=== PATIENT | female | born 1955 | race Caucasian/White ===

== ENCOUNTER 2021-09-26 05:23 | Inpatient (IN) ==
--- NOTE | 2021-08-26 10:50 | PAT Medication Instructions ---
Medication Instructions Date of Service August 26, 2021 Home Medications docusate sodium 50 mg capsule (Stool Softener) 50 mg PO BID folic acid 1 mg tablet 1 mg PO BID glipizide 5 mg tablet 5 mg PO BID golimumab 50 mg/0.5 mL subcutaneous pen injector (Simponi) 50 mg SUBCUT UD hydrocodone 5 mg-acetaminophen 325 mg tablet 1 tab PO TID PRN leflunomide 20 mg tablet 20 mg PO QAM prednisone 5 mg tablet 5 mg PO QAM semaglutide 2 mg/dose (8 mg/3 mL) subcutaneous pen injector (Ozempic) 2 mg SUBCUT UD sertraline 50 mg tablet (Zoloft) 50 mg PO QAM Continue as directed semaglutide 2 mg/dose (8 mg/3 mL) subcutaneous pen injector (Ozempic) 2 mg SUBCUT UD ASK your prescriber and surgeon golimumab 50 mg/0.5 mL subcutaneous pen injector (Simponi) 50 mg SUBCUT UD leflunomide 20 mg tablet 20 mg PO QAM DO NOT take the morning of surgery docusate sodium 50 mg capsule (Stool Softener) 50 mg PO BID folic acid 1 mg tablet 1 mg PO BID glipizide 5 mg tablet 5 mg PO BID Take morning of surgery With a small sip of water, OTHERWISE NOTHING TO EAT OR DRINK AFTER MIDNIGHT: hydrocodone 5 mg-acetaminophen 325 mg tablet 1 tab PO TID PRN (if needed) prednisone 5 mg tablet 5 mg PO QAM sertraline 50 mg tablet (Zoloft) 50 mg PO QAM Take evening before surgery docusate sodium 50 mg capsule (Stool Softener) 50 mg PO BID folic acid 1 mg tablet 1 mg PO BID glipizide 5 mg tablet 5 mg PO BID hydrocodone 5 mg-acetaminophen 325 mg tablet 1 tab PO TID PRN (if needed) Other Notes If you have any questions please call us at [phone] or [phone] or [phone] or [phone]
--- NOTE | 2021-08-27 09:05 | Anesthesiology Consultation ---
Date of Service August 27, 2021 Assessment & Plan (1) Encounter for pre-operative examination: - check BSG am DOS. - dyspnea on exertion: Case discussed with Dr. Angeles who advised patient is acceptable risk to proceed with surgery and does not need additional evaluation or testing prior to surgery. - COVID screening: Per assessment on 08/27/2021: Travel screen returned 08/22 from [place] , no known COVID-19 positive contacts or current COVID-19 related symptoms in past 2 weeks. Pt vaccinated. Surgeon arranging preop COVID testing, scheduled 09/24/2021. Awaiting results. Chart Review Chart Review: Acceptable Risk for Surgery and Patient seen in Pre Admission Testing Teaching & Discussion Pre-Anesthesia Teaching/Discussion Notes: Instructed NPO after midnight before surgery, except medications with 15 cc of water. Medication instructions provided according to the PAT guidelines. History Surgery Operation Date: 09/26/21 12:15 Proposed Procedures p Right Total Hip Arthroplasty - Hossein Bhat DO Height/Weight Height: 5 ft 3 in Weight: 91.3 kg Allergies Allergy/AdvReac Type Severity Reaction Status Date / Time levofloxacin [From Levaquin] Allergy Severe kidney Verified 08/26/21 09:19 failure adalimumab Allergy Mild Joint Pain Verified 08/26/21 09:19 doxycycline Allergy Mild Rash Verified 08/26/21 09:19 etanercept Allergy Mild Joint Pain Verified 08/26/21 09:19 tromethamine Allergy Mild Unknown Verified 08/26/21 09:19 Medications Home Medications Medication Instructions Recorded Confirmed Last Taken docusate sodium 50 mg capsule 50 mg PO BID 08/26/21 08/26/21 Unknown (Stool Softener) folic acid 1 mg tablet 1 mg PO BID 08/26/21 08/26/21 Unknown glipizide 5 mg tablet 5 mg PO BID 08/26/21 08/26/21 Unknown golimumab 50 mg/0.5 mL 50 mg SUBCUT UD 08/26/21 08/26/21 Unknown subcutaneous pen injector (Simponi) hydrocodone 5 mg-acetaminophen 325 1 tab PO TID PRN 08/26/21 08/26/21 Unknown mg tablet leflunomide 20 mg tablet 20 mg PO QAM 08/26/21 08/26/21 Unknown prednisone 5 mg tablet 5 mg PO QAM 08/26/21 08/26/21 Unknown semaglutide 2 mg/dose (8 mg/3 mL) 2 mg SUBCUT UD 08/26/21 08/26/21 Unknown subcutaneous pen injector (Ozempic) sertraline 50 mg tablet (Zoloft) 50 mg PO QAM 08/26/21 08/26/21 Unknown Past Medical History Medical History (Updated 08/27/21 @ 09:34 by Viola Tejeda PA-C) Depression Diabetes NIDDM GERD (gastroesophageal reflux disease) occasional, resolved with prn TUMS History of COVID-19 06/2021 asymptomatic 02/2020- cough, congestion, fever, body aches- no hospitalization History of uterine cancer surgical intervention- 27 yrs ago no chemo or radiation Hx of diverticulitis of colon Hx of renal failure 04/2020- states due to severe allergic reaction to levaquin was hospitalized at [facility]. was on the levaquin for diverticulitis ; no dialysis needed at time. currently no kidney issues Rheumatoid arthritis Patient denies h/o stroke, seizures, heart attack, heart failure, HTN, blood clots or blood transfusions. Exercise / Class Metabolic Activity III < 4 Walking/Shop/Light housework (ambulates with rolling walker, occ SOB with usual activities ongoing x several months-unchanged; denies chest discomfort) Past Surgical History Surgical History History of total bilateral knee replacement Hx laparoscopic cholecystectomy Hx of section Hx of dilation and curettage Hx of hysterectomy S/P colonoscopy Past Anesthesia History No Hx of Anesthesia Complications and No Family Hx of Anesthesia Complications History of PONV No Hx of PONV and No Hx of Motion Sickness Social History Smoking Status: Never smoker Do You Dip or Chew Tobacco: No Hx Alcohol Use: No Hx Substance Use: No substance use type: does not use Review of Systems Snoring, occ snores self awake; denies witnessed apneas or sleep studies. Patient denies chest pain, fever, chills, cough, wheezing, or palpitations. Physical Exam Vital Signs Vitals BP 125/68 P 63 TEMP 97.9 SP02 97% on RA RESP 17 Physical Full cervical extension range of motion without pain TMD 3.5 finger breaths Mallampati Score 3 Dentition: edentulous, implants lower teeth and full upper dentures Lungs: normal respiratory effort. Clear throughout to auscultation, no adventitious breath sounds Cardiac: regular rate and rhythm, no murmurs noted Carotid arteries: negative bruit bilat Lab Results Anesthesia Preop Results Results Anesthesia Widget: WBC 5.05 K/uL (4.8-10.8) 08/27/21 Hgb 13.5 g/dL (12.0-16.0) 08/27/21 Hct 41.7 % (37-47) 08/27/21 Plt 176 K/uL (130-400) 08/27/21 Na 142 mmol/L (136-145) 08/27/21 K 4.5 mmol/L (3.5-5.1) 08/27/21 Cl 107 mmol/L (98-107) 08/27/21 CO2 28 mmol/L (21-32) 08/27/21 BUN 22 mg/dl (6-23) 08/27/21 Creat 0.70 mg/dl (0.6-1.2) 08/27/21 Glucose Level 130 mg/dl (70-99(Fasting)) H 08/27/21 PT 10.3 Seconds (9.0-12.0) 08/27/21 PTT 26.1 Seconds (21.0-31.0) 08/27/21 INR 1.0 (0.9-1.1) 08/27/21 HA1c 6.7 % (4.5-5.6) H 08/27/21 Urine Color Dark Yellow 08/27/21 Urine Appearance Clear (Clear) 08/27/21 Urine pH 5.0 (4.5-7.5) 08/27/21 Urine Specific [place] 1.030 (1.000-1.030) 08/27/21 Urine Protein Negative (Negative) 08/27/21 Urine Glucose (UA) Negative (Negative) 08/27/21 Urine Ketones Negative (Negative) 08/27/21 Urine Blood Negative (Negative) 08/27/21 Urine Nitrite Negative (Negative) 08/27/21 Urine Bilirubin Negative (Negative) 08/27/21 Urine Urobilinogen Negative (Negative) 08/27/21 Urine Leukocyte Esterase Negative (Negative) 08/27/21 Blood Type A Positive 08/27/21 Antibody Screen NEGATIVE 08/27/21 Testing Electrocardiogram Date: 08/27/21 Sinus bradycardia, rate 59 bpm Chest X-Ray Date: 08/27/21 No lines and tubes are seen. The cardiomediastinal silhouette is normal. The lungs are clear. No evidence of pleural effusion or pneumothorax. Degenerative changes are seen in the spine. IMPRESSION: No acute chest disease. Cervical Spine Date: 08/27/21 x-ray FINDINGS: Lateral views of the cervical spine in the neutral, flexion, and extension positions are obtained. No prior studies are available for comparison at the time of dictation. The skeletal structures are osteopenic. There is no radiographic evidence of fracture or subluxation on these lateral projections. Vertebral body height and alignment are maintained. Small anterior osteophytes are seen throughout. There is no inducible bony subluxation on the flexion/extension views. The spinolaminar line is maintained. Productive degenerative change is noted at the atlantodental articulation. There is mild disc space narrowing and a posterior disc osteophyte complex at C6-C7. The remaining disc spaces are preserved. The spinous processes appear intact. The prevertebral soft tissues are within normal limits. IMPRESSION: 1. No acute bony abnormality is identified on these lateral views. 2. Osteopenia and mild spondylotic change as above. 3. There is no inducible bony subluxation on the flexion/extension views.
--- NOTE | 2021-09-25 17:59 | History & Physical Report ---
Date of Service September 25, 2021 Assessment & Plan (1) Osteoarthritis of right hip: Plan: Schedule patient for right total hip arthroplasty for 09/26/2021. Plan for aspirin 81 mg twice daily x4 weeks for postoperative blood clot prophylaxis.All potential risks, benefits, complications, alternatives, and rehab have been discussed with the patient and she wishes to proceed. History of Present Illness Chief Complaint: Right hip pain Primary Care Provider: Antonieta Mariee DO This is a patient has been treated conservatively for chronic right hip pain. She was treated for osteoarthritis of the right hip however all conservative management failed. X-rays noted severe osteoarthritis of the right hip. She is now being set up for surgical treatment. Allergies Allergy/AdvReac Type Severity Reaction Status Date / Time levofloxacin [From Levaquin] Allergy Severe kidney Verified 08/26/21 09:19 failure adalimumab Allergy Mild Joint Pain Verified 08/26/21 09:19 doxycycline Allergy Mild Rash Verified 08/26/21 09:19 etanercept Allergy Mild Joint Pain Verified 08/26/21 09:19 tromethamine Allergy Mild Unknown Verified 08/26/21 09:19 Home Medications Medication Instructions Recorded Confirmed Type docusate sodium 50 mg capsule 50 mg PO BID 08/26/21 08/26/21 History (Stool Softener) folic acid 1 mg tablet 1 mg PO BID 08/26/21 08/26/21 History glipizide 5 mg tablet 5 mg PO BID 08/26/21 08/26/21 History golimumab 50 mg/0.5 mL 50 mg subcut UD 08/26/21 08/26/21 History subcutaneous pen injector (Simponi) hydrocodone 5 mg-acetaminophen 325 1 tab PO TID PRN Pain 08/26/21 08/26/21 History mg tablet leflunomide 20 mg tablet 20 mg PO QAM 08/26/21 08/26/21 History prednisone 5 mg tablet 5 mg PO QAM 08/26/21 08/26/21 History semaglutide 2 mg/dose (8 mg/3 mL) 2 mg subcut UD 08/26/21 08/26/21 History subcutaneous pen injector (Ozempic) sertraline 50 mg tablet (Zoloft) 50 mg PO QAM 08/26/21 08/26/21 History Past Med/Surg History Medical History Depression Diabetes NIDDM GERD (gastroesophageal reflux disease) occasional, resolved with prn TUMS History of COVID-19 06/2021 asymptomatic 02/2020- cough, congestion, fever, body aches- no hospitalization History of uterine cancer surgical intervention- 27 yrs ago no chemo or radiation Hx of diverticulitis of colon Hx of renal failure 04/2020- states due to severe allergic reaction to levaquin was hospitalized at [facility]. was on the levaquin for diverticulitis ; no dialysis needed at time. currently no kidney issues Rheumatoid arthritis Surgical History History of total bilateral knee replacement Hx laparoscopic cholecystectomy Hx of section Hx of dilation and curettage Hx of hysterectomy S/P colonoscopy Social History Smoking Status: Never smoker Second Hand Exposure: No; Hx Alcohol Use: No Hx Substance Use: No Preferred Language: Azerbaijani Communication Ability: Effective Inpatient Services Rn Required: No Beliefs That Will Affect Care: None Current Living Situation: Spouse Feels Safe at Home: Yes Assistive Devices: Denture - Upper, Denture - Lower and Walker Physical Exam Constitutional: well developed and well nourished; no acute distress ENMT: external ear and nose normal, oropharynx normal Neck: trachea midline Respiratory: normal respiratory effort, lungs clear to auscultation Cardiovascular: Rate/Rhythm: regular rate and regular rhythm Gastrointestinal (Abdomen): normal bowel sounds, soft, nontender, no hepatosplenomegaly Musculoskeletal: Hip: + limited ROM of hip (Right internal and external rotation), + joint line tenderness (Right groin) and + MAYURI test positive (Right); no skin erythema and no ecchymosis Skin: no rashes, warm and dry Trauma: no evidence of skin trauma Neurologic: normal touch/pain/proprioception Psychiatric: A+Ox3, euthymic affect Speech: normal rate/rhythm/volume of speech Lymphatic: no cervical or axillary lymphadenopathy
[2021-09-26] MEDS ORDERED: LR 500ML BOLUS, THEN 15ML/HR IV SCH (06:00)
[2021-09-26] MEDS ORDERED: ROPIVACAINE 0.5% HCL/PF 150 MG, BUPIVACAINE 0.75% MPF 20 ML, EPINEPHrine 30MG/30ML (OR ... INFIL SCH (06:00)
[2021-09-26] MEDS ORDERED: FAMOTIDINE 20 MG TAB PO SCH (06:00)
[2021-09-26] MEDS ORDERED: TRANEXAMIC ACID 1,000 MG **IV Intra-op IV SCH (06:00)
[2021-09-26] MEDS ORDERED: TRANEXAMIC ACID 1,000 MG **IV Pre-op IV SCH (06:00)
[2021-09-26] MEDS ORDERED: METOCLOPRAMIDE HCL 10 MG TABLET PO SCH (06:00)
[2021-09-26] MEDS ORDERED: GABAPENTIN 300 MG CAP PO SCH (06:00)
[2021-09-26] MEDS ORDERED: ACETAMINOPHEN 500 MG TAB PO SCH (06:00)
[2021-09-26] MEDS ORDERED: dexAMETHasone 4 MG TAB PO SCH (06:00)
[2021-09-26] MEDS ORDERED: ceFAZolin 2000MG 2,000 MG/15 ML SYR IV SCH (06:00)
[2021-09-26] MEDS ORDERED: DEXTROSE 50% 50 ML SYRINGE IV ONE (06:20)
[2021-09-26] MEDS ORDERED: LIDOCAINE 2% MPF LOCAL 5 ML VIAL INFIL ONE (06:27)
[2021-09-26] MEDS ORDERED: ONDANSETRON INJ 2 MG/ML 2 ML VIAL ONE ×2 (06:27→09:52)
[2021-09-26] MEDS ORDERED: PROPOFOL IV EMULSION 10 MG/ML 20 ML VIAL IV ONE ×5 (06:27→08:53)
[2021-09-26] MEDS ORDERED: ROCURONIUM BROMIDE 10 MG/ML 5 ML VIAL IV ONE (06:28)
[2021-09-26] MEDS ORDERED: DEXAMETHASONE SOD INJ 4 MG/ML VIAL ONE (06:28)
[2021-09-26] MEDS ORDERED: D5W AND LACTATED RINGERS 1,000 ML IV SCH ×3 (06:30→06:45)
[2021-09-26] MEDS ORDERED: fentaNYL citrate 100 MCG/2 ML VIAL ONE ×4 (06:32→10:58)
[2021-09-26] MEDS ORDERED: MIDAZOLAM HCL 1 MG/ML 2ML VIAL ONE ×3 (06:32→07:21)
[2021-09-26] MEDS ORDERED: BUPIVACAINE 0.5 % 5 MG/1 ML PF 10ML VIAL ONE (06:35)
[2021-09-26] MEDS ORDERED: ORTHO JOINT ANESTHETIC ONE (07:01)
[2021-09-26] MEDS ORDERED: ceFAZolin 330 MG/ML 1 GM VIAL ONE (07:01)
--- NOTE | 2021-09-26 07:17 | History & Physical Bridge Note ---
Date of Service September 26, 2021 History & Physical Bridge Note I have examined the patient, reviewed the History & Physical and in the interval since the performance of the History & Physical I have noted the following changes of clinical significance: no changes noted
[2021-09-26] MEDS ORDERED: ATROPINE SULFATE 0.1 MG/ML 10ML SYR IV PRN (08:33)
[2021-09-26] MEDS ORDERED: ePHEDrine sulfate 50 MG/ML AMP IV PRN (08:33)
--- NOTE | 2021-09-26 09:57 | Post Operative Brief Note ---
Immediate Post Op Note v1 Date of Surgery September 26, 2021 Pre & Post Diagnosis Operation Date: 09/26/21 07:15 Pre-Op Diagnosis: Right Hip Osteoarthritis, right hip pain Post-Op Diagnosis: Right Hip Osteoarthritis, right hip pain I identified the patient and participated in the time-out.: Yes Procedure Operation Date: 09/26/21 07:15 Actual Procedures p Right Total Hip [id number] uncemented Shanelle Accolade two 102 degree neck size 5 femur implant, Biolox delta ceramic V 40 femoral head -2.5 mm neck, Trident 2 acetabular shell 54 mm, 6.5 mm hex screws x2, Trident X3 10 degree polyethylene insert 36 mm (Right) - Hossein Bhat DO Surgeon Hossein Bhat DO Financial Analysis Manager Arash Brush PA-C Estimated Blood Loss 20 Findings Consistent with Post-Op Diagnosis Specimens Bone and tissue right hip Drains Hemovac Drain (10 fr dual trocar) Anesthesia Type MAC Spinal Regional Complications none Disposition Accompanied Patient To Recovery: No
[2021-09-26] MEDS ORDERED: HYDROmorphone INJ 2 MG/ML SYR/VIAL IV PRN (10:30)
--- NOTE | 2021-09-26 10:30 | Operative Report (OR) ---
DATE OF PROCEDURE: 09/26/2021. PREOPERATIVE DIAGNOSES: 1. Right hip osteoarthritis. 2. Right hip pain. 3. Body mass index 30-35 POSTOPERATIVE DIAGNOSES: 1. Right hip osteoarthritis. 2. Right hip pain. 3. Body mass index 30-35 PROCEDURE: Right total hip arthroplasty with a [place] Accolade II, 132-degree neck size 5 femoral component with a Biolox Delta ceramic V40 femoral head, 36 mm outer diameter, negative 2.5 mm neck length, 2 x 6.5 mm low profile hex screws, a Trident II tritanium cluster hole acetabular shell size 54 mm and a Trident X3 10-degree polyethylene insert. Enhanced surgical time requirement and enhanced surgical difficulty due to body mass index 30-35. SURGEON: Hossein Bhat DO. BEAN PICKER: Arash Brush PA-C who was present for patient positioning, sterile prep and drape, management of retractors and instruments which were particularly important in this patient with body mass index 30-35. EDGAR was critical in helping to adjust for increased difficulty with patient positioning, use of deeper retractors for prolonged periods of time and management of enhanced soft tissue envelope.. He was present through the critical portions of the case including wound closure, application of sterile dressing and transport of the patient to recovery. ANESTHESIA: Spinal MAC, regional. SPECIMENS: Bone and tissue, right hip. DRAINS: Hemovac x2. COMPLICATIONS: None. BLOOD LOSS: 20 mL. PERTINENT HISTORY: This is a 66-year-old female who has had chronic progressive and worsening right hip pain and loss of function over the last several years. She has attempted and failed conservative management including physician- directed home exercises, physical therapy, NSAIDs, observation, rest, modification of activities, use of an assistive device. The patient was scheduled for surgery as indicated. All potential risks, benefits, complications, alternatives, rehab potential for incomplete relief of symptoms, need for further surgery, DVT, PE, , persistent pain, swelling, scarring, weakness, neurovascular injury, wound complications, hardware failure, nonunion, malunion, bone fracture were discussed with the patient. The patient decided to proceed with the procedure as indicated. PROCEDURE: The patient was taken to the Operating Suite and placed supine on the Operating Room table after identification of the consent and identification of the proper operative site the patient was sedated. The patient had previously received a spinal epidural anesthetic. The patient was then placed in the left lateral decubitus position with the affected side up and Stulberg positioning device then used to maintain lateral position of the patient. Extra time was needed due to the increased body mass index for patient positioning and assurance of proper padding and protection of all bony prominences which were properly padded and protected. Axillary roll was placed as standard and the leg lengths were determined to be essentially equal and then the right hip was then sterilely prepped and draped in the usual fashion. 10-blade scalpel incision was made laterally over the greater trochanter. The incision was deepened through the enlarged subcutaneous tissue envelope and meticulous hemostasis with electrocautery was painstakingly performed to account for the increased adipose tissue layer. Further deepening of the wound through the layer of the fascia was performed with electrocautery and the iliotibial band was then incised with electrocautery. Next, a Charnley retractor was placed both anteriorly and posteriorly at the level of the gluteus tendon. Next, electrocautery was used to make an incision in the vastus lateralis and then sweep was made toward the anterior aspect of the patient along the course of the femoral neck, anterior greater trochanter, femoral neck and femoral head. Abductor split was then completed at the level of the femoral neck. The gluteus minimus and capsule were then incised and then soft tissue was dissected anteriorly. Next as the soft tissue was dissected anteriorly the lesser trochanter was clearly identified and hip was dislocated anteriorly. Hypertrophic osteophytes were noted circumferentially. The hip joint was noted to be notably adhesed. Next the sagittal saw was used to resect the proximal portion of the femoral neck and head approximately one fingerbreadth proximal to the lesser trochanter. Head was then removed. Extra retractors were applied circumferentially around the acetabulum due to enhanced soft tissue impingement due to high BMI and next the labrum was excised from the acetabulum with a 20 blade scalpel and long forceps. Next the incision was carefully irrigated with pulsatile lavage and the pulvinar was then excised from the acetabulum. Appropriate retractors were placed anteriorly, superiorly, inferiorly and posteriorly. Next initial acetabular reamer was placed, size 44 mm medialized adjacent to the medial wall and then sequential reaming was performed to size 54 mm. Trial cage was then placed and noted to be stable with excellent fit. Next the wound was irrigated with pulsatile lavage with bacitracin additive and 54 mm [place] trident cup was impacted and then 2 x 6.5 mm low profile hex screws were used to stabilize the acetabular shell. Next a Trident II tritanium cluster hole acetabular shell size 54 mm and a Trident X3 10-degree polyethylene insert was impacted into the shell. Lap sponge was placed over to protect it. Next, attention was turned toward the proximal femur. Box osteotome was used to resect proximal portion of bone followed by first pass small reamer. Next, sequential broaching was performed up to size 5 and the 5 trial was placed followed by -2.5mm 36 mm trial head. Next, it was reduced and had excellent fit and feel with minimal shuck and excellent stability in all planes and range of motion. Leg lengths were restored and next all trial implants were removed. The wound was copiously irrigated with pulsatile lavage and size 5 Shanelle Accolade II x 132 degree final stem was impacted. Next, Biolox Delta ceramic V40 femoral head, 36 mm head - 2.5 neck was impacted. The construct was reduced. Range of motion was performed and noted to be completely stable with excellent range of motion, improved to greater degree than prior to surgery. Two 10 [place] single Hemovac drains were placed exiting anterolaterally. Wound was irrigated with pulsatile lavage. Next a #5 FiberWire suture was used to close the capsule and gluteus minimum via two small bone tunnels made with 2.4 mm drill bit in the greater trochanter. After #5 FiberWire closure was completed and noted to be stable then 10 [place] drains were placed followed by closure of the vastus lateralis and the gluteus medius. Sterile dilute Betadine soak was performed for 3 minutes. Next sterile Betadine was then irrigated and suctioned dry. Next Ortho mix was injected around the joint capsule and in the subcutaneous tissue. Care was taken to avoid injection around the sciatic nerve. Next the vastus lateralis and the gluteus medius were closed with #1 Vicryl sutures. Next, the iliotibial band was closed using interrupted [id number] #1 Vicryl sutures. Next, final irrigation was performed with pulsatile lavage and dermis was closed using buried interrupted 2-0 Vicryl suture. The skin was closed with skin raoul. Sterile compressive dressing was applied. The patient was then placed supine and taken to recovery in stable condition. Job ID: [id number] [facility]
[2021-09-26] MEDS: fentaNYL citrate 100 MCG/2 ML VIAL IV PRN ×3 (10:31→10:58)
--- NOTE | 2021-09-26 11:09 | XRay Report ---
XR hip 1V RT w pelvis CLINICAL HISTORY: IN PACU - A/P PELVIS and LATERAL HIP . Status post hip replacement COMPARISON STUDY: No previous studies for comparison. TECHNIQUE: 2 right hip views FINDINGS: The patient is status post total hip replacement. The prosthetic components are in anatomic alignment with no acute abnormality seen. Skin raoul are seen from the recent procedure. IMPRESSION: 1. Status post total hip replacement. ACT 112: Negative or not required by law. Electronically signed by: Krishan Wallace M.D. 09/26/2021 11:08 AM
[2021-09-26] MEDS ORDERED: ONDANSETRON INJ 2 MG/ML 2 ML VIAL IV PRN (11:30)
[2021-09-26] MEDS ORDERED: PHARMACY GLYCEMIC MGMT CONSULT PRN (11:30)
[2021-09-26] MEDS ORDERED: bisacodyL 10 MG SUPP PR PRN (11:30)
[2021-09-26] MEDS ORDERED: NALOXONE HCL 0.4 MG/1 ML VIAL/CARP IV PRN (11:30)
[2021-09-26] MEDS ORDERED: HYDROmorphone INJ 0.5 MG/0.5 ML SYR IV PRN (11:30)
[2021-09-26] MEDS ORDERED: MAGNESIUM HYDROXIDE SUSP 30 ML UDC PO PRN (11:30)
[2021-09-26] MEDS ORDERED: DEXTROSE 50% 50 ML SYRINGE IV PRN (11:45)
[2021-09-26] MEDS ORDERED: CARBOHYDRATES FOR HYPOGLYCEMIA PO PRN (11:45)
[2021-09-26] MEDS ORDERED: GLUCOSE 40% GEL 15 GM TUBE PO PRN (11:45)
[2021-09-26] MEDS ORDERED: GLUCAGON FOR INJ 1 MG VIAL IM PRN (11:45)
[2021-09-26] MEDS ORDERED: GLUCOSE 10 TAB/TUBE PO PRN (11:45)
--- NOTE | 2021-09-26 11:56 | Pharmacy Report ---
Pharmacy Glycemic Short Note 2 - Date of Service September 26, 2021 - Glycemic Short BSG Results (Last 24 hours): 09/26/21 09/26/21 09/26/21 05:51 05:52 06:56 POC Glucose 65 L* 60 L* 122 H 09/26/21 09/26/21 10:13 11:39 POC Glucose 129 H 256 H OUTPATIENT ANTIDIABETIC REGIMEN: * glipizide 5 mg PO BID * Ozempic 2 mg SC weekly HbA1c 6.7% (08/27/21) ASSESSMENT: * PB is a 66 year old female POD #0 s/p right total hip arthroplasty * Received 8 mg PO dexamethasone and intra-articular ortho-mix containing dexamethasone * Well-controlled T2DM based on HbA1c * Preoperative BSG was 65 mg/dL, postoperative BSG of 256 mg/dL * Will utilize conservative NPH (rather than Lantus) in effort to control BSGs for remainder of today without causing hypoglycemia tomorrow morning * Aggressive Novolog parameters for POD 0 PLAN FOR INPATIENT GLYCEMIC CONTROL: * Hold outpatient oral diabetes medications * Basal insulin * NPH 15 units SC x 1 * Bolus insulin * NovoLog per scale ACHS or Q6hrs while NPO * Goal Range: Low 110 mg/dL - High 140 mg/dL * Correction Factor: 20 mg/dL/unit * Nutritional / Prandial insulin per carb ratio of 1 unit per 7 grams CHO consumed
[2021-09-26] MEDS ORDERED: NovoLIN-N (NPH) PER UNIT CHARGE SQ ONE ×2 (12:00)
[2021-09-26] MEDS: INSULIN ASPART PER UNIT SC SCH ×3 (12:29→20:56)
[2021-09-26] MEDS: HYDROCODONE/ACETAMOPHEN 5/325MG TAB PO PRN ×3 (13:34→23:50)
--- NOTE | 2021-09-26 13:45 | Anesthesiology Progress Note ---
Date of Service September 26, 2021 Anesthesia Post Procedure Vital Signs Vital Signs: Temp Pulse Pulse Resp BP BP Pulse Ox 09/26/21 12:45 36.6 C 73 16 124/81 96 09/26/21 12:15 68 16 125/44 L 92 09/26/21 11:45 54 L 15 118/57 L 92 09/26/21 11:35 53 L 14 125/57 L 93 09/26/21 11:25 36 C L 50 L 13 114/54 L 95 09/26/21 11:15 63 23 126/68 93 09/26/21 11:05 52 L 17 127/57 L 96 09/26/21 10:55 49 L 12 109/52 L 97 09/26/21 10:45 58 L 15 132/50 L 97 09/26/21 10:35 58 L 13 128/57 L 91 09/26/21 10:25 62 21 99/59 L 95 09/26/21 10:15 56 L 17 142/70 H 97 09/26/21 10:06 36.3 C L 63 15 101/75 92 09/26/21 06:13 36.5 C 57 L 18 144/58 H 96 O2 Del Method O2 Flow Rate 09/26/21 12:45 Room Air 09/26/21 12:15 Room Air 09/26/21 11:45 Room Air 09/26/21 11:35 Room Air 09/26/21 11:25 Nasal Cannula 2 09/26/21 11:15 Nasal Cannula 2 09/26/21 11:05 Nasal Cannula 2 09/26/21 10:55 Nasal Cannula 2 09/26/21 10:45 Nasal Cannula 2 09/26/21 10:35 Nasal Cannula 2 09/26/21 10:25 Room Air 09/26/21 10:15 Room Air 09/26/21 10:06 Room Air 09/26/21 06:13 Room Air Pain Intensity Right Hip: Pain Intensity: 4 Transfer of Care Handoff Completed per policy Notes Mental Status: alert / awake / arousable and participated in evaluation Nausea / Vomiting: adequately controlled Pain: adequately controlled Airway Patency, RR, SpO2: stable & adequate BP & HR: stable & adequate Hydration State: stable & adequate Neuraxial Anesthesia: was administered and sensory block is resolving Anesthetic Complications: no major complications apparent and Pt Satisfied with anesthetic care
[2021-09-26] MEDS: SODIUM CHLORIDE 0.9% 1000ML 1,000 ML IV SCH ×2 (17:04→20:57)
[2021-09-26] MEDS: ceFAZolin 2000MG 2,000 MG/15 ML SYR IV SCH (18:23)
[2021-09-26] MEDS: ASPIRIN 81 MG ECTAB PO SCH (20:55)
[2021-09-26] MEDS: DOCUSATE SODIUM 100 MG CAP PO SCH (20:55)
[2021-09-26] MEDS: FOLIC ACID 1 MG TAB PO SCH (20:56)
[2021-09-26] MEDS ORDERED: glipiZIDE 5 MG TAB PO SCH (21:00)
[2021-09-26] MEDS ORDERED: SENNA 8.6 MG TAB PO SCH (21:00)
[2021-09-27] MEDS: ceFAZolin 2000MG 2,000 MG/15 ML SYR IV SCH (00:57)
[2021-09-27] MEDS: HYDROCODONE/ACETAMOPHEN 5/325MG TAB PO PRN ×2 (07:29→11:57)
[2021-09-27 07:44] LABS: Basophils # (auto) 0.03 K/uL (0-0.2); Basophils % (auto) 0.3 %; Eosinophils # (auto) 0.02 K/uL (0-0.50); Eosinophils % (auto) 0.2 %; Hematocrit (blood only) 35.3 % (34.1-44.9); Hemoglobin 11.7 g/dl (12.0-16.0); Immature Granulocytes # (auto) 0.06 K/uL (0.00-0.02); Immature Granulocytes % (auto) 0.5 %; Lymphocytes # (auto) 1.54 K/uL (1.2-3.4); Lymphocytes % (auto) 13.6 %; Mean Corpuscular Hemoglobin 30.6 pg (25.0-34.0); Mean Corpuscular Hgb Conc 33.1 g/dL (32.0-36.0); Mean Corpuscular Volume 92.4 fL (80.0-100.0); Mean Platelet Volume 12.2 fL (9.4-12.3); Monocytes # (auto) 1.35 K/uL (0.24-0.82); Monocytes % (auto) 11.9 %; Neutrophils # (auto) 8.34 K/uL (1.4-6.5); Neutrophils % (auto) 73.5 %; Platelet Count 116 K/uL (130-400); RDW Coefficient of Variation 13.2 % (11.5-14.5); RDW Standard Deviation 44.7 fL (36.4-46.3); Red Blood Count 3.82 M/uL (3.93-5.22); White Blood Count 11.34 K/ul (4.8-10.8)
[2021-09-27 08:17] LABS: BUN Creatinine Ratio 29.2 (10-20); Calcium 8.8 mg/dl (8.5-10.1); Creatinine Clr Calc Pharmacy 65.4 ml/min; Est GFR (African American) 77.7 ml/min; Est GFR (Non-African American) 67.1 ml/min
[2021-09-27] MEDS ORDERED: MULTIVITAMIN TAB PO SCH (09:00)
[2021-09-27] MEDS ORDERED: SERTRALINE HCL 50 MG TABLET PO SCH (09:00)
[2021-09-27] MEDS ORDERED: predniSONE 5 MG TAB PO SCH (09:00)
--- NOTE | 2021-09-27 09:13 | Orthopedic Progress Note ---
Date of Service September 27, 2021 Assessment & Plan (1) Osteoarthritis of right hip: Plan: POD 1 s/p Right [facility] PT/OT protocols. WBAT. DVT prophylaxis - ASA po bid, SCD's, KEVYN's Pain management as written. DC planning - services upon discharge. Admission and Anticipated Discharge Date Admission Date: September 26, 2021 Supervising Physician Co-Signing Physician Notes Patient seen and examined. Agree with EDGAR Brush's note as above. Patient is doing very well after her total hip replacement. She is ready to go home today. Subjective POD 1 Pt sitting at bedside eating breakfast. States she had difficulty sleeping last night. Also difficulty ambulating on the operative hip. Feeling better this AM. Denies SOB, CP, LH. Physical Exam Physical Exam: Dressings are C/D/I. Thigh with swelling consistent with surgery. Calves soft, NT. NV intact. Toes mobile. Good DF/PF of the right foot. Hip located. HV drainage minimal. Results & Data ([facility]) Vital Signs (Past 12 Hours) Vital Signs Temp Pulse Resp BP Pulse Ox O2 Del Method 09/27/21 07:21 36.7 C 62 18 144/78 H 97 Room Air 09/27/21 03:00 36.4 C L 66 18 105/64 97 Room Air 09/26/21 21:45 36.6 C 64 16 117/65 93 Laboratory Results Laboratory Results WBC 11.34 K/ul (4.8-10.8) H 09/27/21 07:14 RBC 3.82 M/uL (3.93-5.22) L 09/27/21 07:14 Hgb 11.7 g/dl (12.0-16.0) L 09/27/21 07:14 Hct 35.3 % (34.1-44.9) 09/27/21 07:14 MCV 92.4 fL (80.0-100.0) 09/27/21 07:14 MCH 30.6 pg (25.0-34.0) 09/27/21 07:14 MCHC 33.1 g/dL (32.0-36.0) 09/27/21 07:14 RDW Std Deviation 44.7 fL (36.4-46.3) 09/27/21 07:14 RDW Coeff of Sarah 13.2 % (11.5-14.5) 09/27/21 07:14 Plt Count 116 K/uL (130-400) L 09/27/21 07:14 MPV 12.2 fL (9.4-12.3) 09/27/21 07:14 Immature Gran % (Auto) 0.5 % 09/27/21 07:14 Neut % (Auto) 73.5 % 09/27/21 07:14 Lymph % (Auto) 13.6 % 09/27/21 07:14 Bremer % (Auto) 11.9 % 09/27/21 07:14 Eos % (Auto) 0.2 % 09/27/21 07:14 Baso % (Auto) 0.3 % 09/27/21 07:14 Neut # (Auto) 8.34 K/uL (1.4-6.5) H 09/27/21 07:14 Lymph # (Auto) 1.54 K/uL (1.2-3.4) 09/27/21 07:14 Bremer # (Auto) 1.35 K/uL (0.24-0.82) H 09/27/21 07:14 Eos # (Auto) 0.02 K/uL (0-0.50) 09/27/21 07:14 Baso # (Auto) 0.03 K/uL (0-0.2) 09/27/21 07:14 Immature Gran # (Auto) 0.06 K/uL (0.00-0.02) H 09/27/21 07:14 Sodium 140 mmol/L (136-145) 09/27/21 07:14 Potassium 4.0 mmol/L (3.5-5.1) 09/27/21 07:14 Chloride 109 mmol/L (98-107) H 09/27/21 07:14 Carbon Dioxide 25 mmol/L (21-32) 09/27/21 07:14 Anion Gap 6 (3-11) 09/27/21 07:14 BUN 26 mg/dl (6-23) H 09/27/21 07:14 Creatinine 0.89 mg/dl (0.6-1.2) 09/27/21 07:14 Est Cr Clr Drug Dosing 65.4 ml/min 09/27/21 07:14 Est GFR ( Amer) 77.7 ml/min 09/27/21 07:14 Est GFR (Non-Af Amer) 67.1 ml/min 09/27/21 07:14 BUN/Creatinine Ratio 29.2 (10-20) H 09/27/21 07:14 Glucose 117 mg/dl (70-99(Fasting)) H 09/27/21 07:14 POC Glucose 132 mg/dl (70-99) H 09/27/21 08:39 Calcium 8.8 mg/dl (8.5-10.1) 09/27/21 07:14 SARS-CoV-2, RNA, NAAT NEGATIVE (NEGATIVE) 09/26/21 05:38 Impressions Hip/Pelvis X-Ray 09/26/21 10:18 XR hip 1V RT w pelvis CLINICAL HISTORY: IN PACU - A/P PELVIS and LATERAL HIP . Status post hip replacement COMPARISON STUDY: No previous studies for comparison. TECHNIQUE: 2 right hip views FINDINGS: The patient is status post total hip replacement. The prosthetic components are in anatomic alignment with no acute abnormality seen. Skin raoul are seen from the recent procedure. IMPRESSION: 1. Status post total hip replacement. ACT 112: Negative or not required by law. Electronically signed by: Krishan Wallace M.D. 09/26/2021 11:08 AM
[2021-09-27] MEDS: FOLIC ACID 1 MG TAB PO SCH (09:30)
[2021-09-27] MEDS: ASPIRIN 81 MG ECTAB PO SCH (09:30)
[2021-09-27] MEDS: DOCUSATE SODIUM 100 MG CAP PO SCH (09:31)
[2021-09-27] MEDS: INSULIN ASPART PER UNIT SC SCH (09:37)
--- NOTE | 2021-09-29 14:57 | Discharge Summary ---
Date of Service September 29, 2021 Admission HPI Per Admitting Provider This is a patient has been treated conservatively for chronic right hip pain. She was treated for osteoarthritis of the right hip however all conservative management failed. X-rays noted severe osteoarthritis of the right hip. She is now being set up for surgical treatment. Admission Exam Per Admitting Provider Physical Exam B Constitutional: well developed and well nourished; no acute distress ENMT: external ear and nose normal, oropharynx normal Neck: trachea midline Respiratory: normal respiratory effort, lungs clear to auscultation Cardiovascular: Rate/Rhythm: regular rate and regular rhythm Gastrointestinal (Abdomen): normal bowel sounds, soft, nontender, no hepatosplenomegaly Musculoskeletal: Hip: + limited ROM of hip (Right internal and external rotation), + joint line tenderness (Right groin) and + MAYURI test positive (Right); no skin erythema and no ecchymosis Skin: no rashes, warm and dry Trauma: no evidence of skin trauma Neurologic: normal touch/pain/proprioception Psychiatric: A+Ox3, euthymic affect Speech: normal rate/rhythm/volume of speech Lymphatic: no cervical or axillary lymphadenopathy Principal Diagnosis Right hip osteoarthritis Discharge Data Allergies Allergy/AdvReac Type Severity Reaction Status Date / Time levofloxacin [From Levaquin] Allergy Severe kidney Verified 09/26/21 06:08 failure adalimumab Allergy Mild Joint Pain Verified 09/26/21 06:08 doxycycline Allergy Mild Rash Verified 09/26/21 06:08 etanercept Allergy Mild Joint Pain Verified 09/26/21 06:08 tromethamine Allergy Mild Unknown Verified 09/26/21 06:08 Procedures Performed Operation Date: 09/26/21 07:15 Actual Procedures p Right Total Hip Arthroplasty-Uncemented(Right) - Hossein Bhat DO Hospital Course (1) Osteoarthritis of right hip: Patient:IZZY DEMARCO Admit Date:09/26/21 MR#:[id number] Att Phy:Hossein Bhat D.O. Acct ID:[id number] Danika Phy:ZiyadLarry daiashely CLAREK Date:1955 Fam Phy: Age:66 Location:3W Sex:F Room/Bed:[facility] cc: ~ *NOTICE TO RECEIVING [employer]/AGENCY This information is strictly Confidential and protected under [place] law. [place] law prohibits you from making any further disclosure of this information unless further disclosure is expressly permitted by the written consent of the person to whom it pertains or is authorized by law. A general authorization for the release of medical or other information is not sufficient for this purpose. Hospital accepts no responsibility if the information is made available to any other person, INCLUDING THE PATIENT. ADDENDUM 09/27/21 1011Addendum September 27, 2021 10:10 Progressing well with PT/OT. Pain remains controlled. We will plan to discharge patient to home today. Pt agreeable to dc. Addendum Signed By: <Electronically signed by Arash Brush PA-C> 09/27/21 1011 Addendum Cosigned By: <Electronically signed by Jeff Snow M.D.> 09/27/21 1102 Created: 09/27/21 Date of Service September 27, 2021 Assessment & Plan (1) Osteoarthritis of right hip: Plan: POD 1 s/p Right [facility] PT/OT protocols. WBAT. DVT prophylaxis - ASA po bid, SCD's, KEVYN's Pain management as written. DC planning - HH services upon discharge. Admission and Anticipated Discharge Date Admission Date: September 26, 2021 Supervising Physician Co-Signing Physician Notes Patient seen and examined. Agree with EDGAR Brush's note as above. Patient is doing very well after her total hip replacement. She is ready to go home today. Subjective POD 1 Pt sitting at bedside eating breakfast. States she had difficulty sleeping last night. Also difficulty ambulating on the operative hip. Feeling better this AM. Denies SOB, CP, LH. Physical Exam Physical Exam: Dressings are C/D/I. Thigh with swelling consistent with surgery. Calves soft, NT. NV intact. Toes mobile. Good DF/PF of the right foot. Hip located. HV drainage minimal. Results & Data ([facility]) Vital Signs (Past 12 Hours) Vital Signs Temp Pulse Resp BP Pulse Ox O2 Del Method 09/27/21 07:21 36.7 C 62 18 144/78 H 97 Room Air 09/27/21 03:00 36.4 C L 66 18 105/64 97 Room Air 09/26/21 21:45 36.6 C 64 16 117/65 93 Laboratory Results Laboratory Results WBC 11.34 K/ul (4.8-10.8) H 09/27/21 07:14 RBC 3.82 M/uL (3.93-5.22) L 09/27/21 07:14 Hgb 11.7 g/dl (12.0-16.0) L 09/27/21 07:14 Hct 35.3 % (34.1-44.9) 09/27/21 07:14 MCV 92.4 fL (80.0-100.0) 09/27/21 07:14 MCH 30.6 pg (25.0-34.0) 09/27/21 07:14 MCHC 33.1 g/dL (32.0-36.0) 09/27/21 07:14 RDW Std Deviation 44.7 fL (36.4-46.3) 09/27/21 07:14 RDW Coeff of Sarah 13.2 % (11.5-14.5) 09/27/21 07:14 Plt Count 116 K/uL (130-400) L 09/27/21 07:14 MPV 12.2 fL (9.4-12.3) 09/27/21 07:14 Immature Gran % (Auto) 0.5 % 09/27/21 07:14 Neut % (Auto) 73.5 % 09/27/21 07:14 Lymph % (Auto) 13.6 % 09/27/21 07:14 Gray % (Auto) 11.9 % 09/27/21 07:14 Eos % (Auto) 0.2 % 09/27/21 07:14 Baso % (Auto) 0.3 % 09/27/21 07:14 Neut # (Auto) 8.34 K/uL (1.4-6.5) H 09/27/21 07:14 Lymph # (Auto) 1.54 K/uL (1.2-3.4) 09/27/21 07:14 Gray # (Auto) 1.35 K/uL (0.24-0.82) H 09/27/21 07:14 Eos # (Auto) 0.02 K/uL (0-0.50) 09/27/21 07:14 Baso # (Auto) 0.03 K/uL (0-0.2) 09/27/21 07:14 Immature Gran # (Auto) 0.06 K/uL (0.00-0.02) H 09/27/21 07:14 Sodium 140 mmol/L (136-145) 09/27/21 07:14 Potassium 4.0 mmol/L (3.5-5.1) 09/27/21 07:14 Chloride 109 mmol/L (98-107) H 09/27/21 07:14 Carbon Dioxide 25 mmol/L (21-32) 09/27/21 07:14 Anion Gap 6 (3-11) 09/27/21 07:14 BUN 26 mg/dl (6-23) H 09/27/21 07:14 Creatinine 0.89 mg/dl (0.6-1.2) 09/27/21 07:14 Est Cr Clr Drug Dosing 65.4 ml/min 09/27/21 07:14 Est GFR ( Amer) 77.7 ml/min 09/27/21 07:14 Est GFR (Non-Af Amer) 67.1 ml/min 09/27/21 07:14 BUN/Creatinine Ratio 29.2 (10-20) H 09/27/21 07:14 Glucose 117 mg/dl (70-99(Fasting)) H 09/27/21 07:14 POC Glucose 132 mg/dl (70-99) H 09/27/21 08:39 D Calcium 8.8 mg/dl (8.5-10.1) 09/27/21 07:14 SARS-CoV-2, RNA, NAAT NEGATIVE (NEGATIVE) 09/26/21 05:38 Impressions Hip/Pelvis X-Ray 09/26/21 10:18 XR hip 1V RT w pelvis CLINICAL HISTORY: IN PACU - A/P PELVIS and LATERAL HIP . Status post hip replacement COMPARISON STUDY: No previous studies for comparison. TECHNIQUE: 2 right hip views FINDINGS: The patient is status post total hip replacement. The prosthetic components are in anatomic alignment with no acute abnormality seen. Skin raoul are seen from the recent procedure. IMPRESSION: 1. Status post total hip replacement. ACT 112: Negative or not required by law. Electronically signed by: Krishan Wallace M.D. 09/26/2021 11:08 AM Total Time Total Time Spent Total Time Spent (In Minutes): 5 Discharge Plan Discharge Items Patient Disposition: Home - Home Health Services Reason For Visit: Right Hip Osteoarthritis Discharge Diagnosis: Right Hip Osteoarthritis Activity: Per Instructions section Weightbearing: Right weightbearing Weightbearing Comment: as tolerated with walker Non-emergency contact: Surgeon Call non-emergency contact if: you have any medication questions, your pain is not controlled, your temperature is above 101.5, your wound has increased redness and your wound has increased drainage Follow-up/Referrals: Hossein Bhat DO [Surgeon] - (Follow up with Dr Bhat in 2 weeks from the day of your surgery for your first post operative visit. ) Antonieta Mariee DO [Primary Care Provider] - Diet: Carb Consistent or DM2 Addtl Attending Provider Instructions: ACTIVITY RECOMMENDATIONS: SELF CARE INSTRUCTIONS AFTER TOTAL HIP REPLACEMENT Until the incision and soft tissues around your hip have healed, there is a possibility that the hip prosthesis could dislocate. A. Observe the following precautions to prevent dislocation: 1. Don't bend your hip greater than 90 degrees. 2. Avoid crossing your legs or ankles while standing or lying. 3. Sit with your feet placed 6 inches apart. 4. When sitting, keep your knees below your hips. Sit on a firm surface, avoid deep, soft chairs and couches. Use an elevated toilet seat in the bathroom. 5. Don't bend over at the waist. Use a long handled shoehorn and a sock aid to help you put on your shoes and socks. A clinical nursing intern can help you garbage pick up worker objects that are too high or too low to reach. 6. Keep car riding to a minimum for at least one month after surgery. B. Your balance may be shaky for a while. Use crutches or a walker until directed by your doctor. C. Use hand rails when walking on stairs. D. Wear low heeled shoes with non-slip soles. E. Be sure that your floors are free of things that could trip you - throw rugs, electrical cords, small objects. Avoid wet and waxed floors, especially with crutches and canes. F. Try to walk several times a day with rest periods between. G. Continue with all the exercises taught to you in the hospital. Again, make walking a part of your daily routine. SPECIAL CARE INSTRUCTIONS: VERY IMPORTANT TO READ AND REVIEW A. You may still be at risk for phlebitis and blood clots. 1. Wear surgical stockings (KEVYN hose) for 2 weeks after surgery to improve circulation and reduce swelling. 2. Take Aspirin 81mg twice daily for 4 weeks or as directed by your doctor. This is your blood thinner. 3. High risk patients may be prescribed a stronger blood thinner if necessary. 4. If you are on Coumadin normally, your family doctor/certified diabetes educator should monitor your blood work. Expect a phone call the day of or the day after bloodwork is drawn to adjust your dosage. B. You must take antibiotics before having dental work, bladder, bowel and other surgery. Your doctor will provide you with a permanent card to carry describing precautions. C. Call [facility] if you have a fever, redness or swelling around the incision, cloudy drainage from incision, or sudden increase in pain in your hip, not relieved by your regular pain medication. D. Please call the office at if you have any concerns or questions about your operation or recovery. * YOU MAY SHOWER, NO TUB BATHS UNTIL CLEARED BY YOUR DOCTOR. * WEAR KEVYN HOSE 20 HOURS PER DAY FOR 2 WEEKS. * YOU SHOULD USE A WALKER OR CRUTCHES FOR 2-4 WEEKS YOUR THERAPIST PRESCRIBES. THIS WILL HELP PREVENT STRAIN ON YOUR HIP MUSCLE AND ALLOW IT TO HEAL PROPERLY. YOU MAY WEAN TO A CANE TOLERATED. * MOST PATIENTS WILL HAVE HOME NURSING FOR THERAPY. IF YOU DECIDE TO DO OUTPATIENT PHYSICAL THERAPY, PLEASE SCHEDULE THIS 3 TIMES PER WEEK. * CARISSA Dressing - This is a large suction dressing covering your incision. This will help pull any excess drainage from the wound and allow your incision to heal properly. You may shower with this if you can keep the unit outside of the shower. If any bleeding or leakage is noted please call your doctor's office. This will remain on your incision for 7 days and then should be removed. This can be done yourself or by the home nursing staff if applicable. The entire unit is disposable once removed. Once removed, keep incision clean and dry. If redness or drainage is noted, please call your surgeon. . FOLLOW UP VISIT: If appointment is not already scheduled: Please call [facility] to make a follow-up appointment for 2 weeks after your surgery at . Stand-Alone Forms: [employer], Smoking Cessation Medications and DC Order Prescriptions: New aspirin 81 mg Tablet,Delayed Release (Dr/Ec) 81 mg PO BID 30 Days Qty: 60 0RF hydrocodone-acetaminophen 5-325 mg tablet 1 tab PO Q4H MDD 8 tabs PRN (Reason: pain) Qty: 24 0RF polyethylene glycol 3350 [Miralax] 17 gram powder in packet 17 g PO DAILY PRN (Reason: constipation) Qty: 5 0RF Continued prednisone 5 mg Tablet 5 mg PO QAM Stool Softener 50 mg Capsule 50 mg PO BID leflunomide [Arava] 20 mg Tablet 20 mg PO QAM folic acid 1 mg Tablet 1 mg PO BID sertraline [Zoloft] 50 mg Tablet 50 mg PO QAM glipizide 5 mg Tablet 5 mg PO BID Simponi 50 mg/0.5 mL Pen Injector 50 mg SUBCUT UD Rx Instructions: once per month Ozempic 2 mg/dose (8 mg/3 mL) Pen Injector 2 mg SUBCUT UD Discontinued hydrocodone-acetaminophen 5-325 mg Tablet 1 tab PO TID PRN (Reason: Pain) Discharge Orders: Discharge Order (Routine); Ordered 09/27/21 Ordered By: Arash Brush Admission Data Admit Date/Time: 09/26/21 10:18 Attending Provider: Hossein Bhat Admit Provider: Hossein Bhat Primary Care Provider: Antonieta Mariee Other Interventions: Discharge Summary Assessment (RN) Last Done: 09/27/21 11:04
--- NOTE | 2021-10-07 11:36 | Coding Query ---
PATHOLOGY To promote full compliance with coding requirements relating to patient care, physician participation is requested in all cases of solar pool heating installer uncertainty. 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
== END 2021-09-27 12:59 | disposition home health service (06) | DRG 470 ==
LOC: ASU 05:23 → PACUINP 05:23 → OBSVTOIN 10:18 → 3W 15:38
DX: Z88.1 Allergy status to other antibiotic agents; Z79.52 Long term (current) use of systemic steroids; E11.9 Type 2 diabetes mellitus without complications; Z79.84 Long term (current) use of oral hypoglycemic drugs; E66.9 Obesity, unspecified; Z88.8 Allergy status to other drugs, medicaments and biological substances; M87.051 Idiopathic aseptic necrosis of right femur; M06.9 Rheumatoid arthritis, unspecified; Z79.899 Other long term (current) drug therapy; Z68.35 Body mass index [BMI] 35.0-35.9, adult; M16.11 Unilateral primary osteoarthritis, right hip; F32.A Depression, unspecified; Z96.653 Presence of artificial knee joint, bilateral